=== PATIENT | male | born 1985 | race Caucasian/White ===

== ENCOUNTER 2019-07-17 13:52 | Outpatient (CLI) | payer OTHER ==
--- NOTE | 2019-07-17 16:50 | MRI ---
EXAM: MRI Pelvis WO Con DATE: 07/17/2019 12:00 AM INDICATION: Left sided hip pain for 4 months; concern for left hamstring muscular strain COMPARISON: Left hip radiograph dated May 21, 2019 and AP view of the pelvis dated May 21, 2019 FINDING: There is a 1 cm lobulated T2 hyperintense lesion seen within the right greater trochanter w ith small internal temporal region of diminished signal intensity suspicious suspicious for small calcification. Findings are suspicious for small enchondroma. No acute fracture is evident. There is subcutaneous edema overlying the left mid thigh laterally. No drainable fluid collection is evident. There is mild muscular edema involving the proximal musculotendinous junction of the rectus femoris. There is mild suggested edema involving the left anterior gluteus minimus musculature, best seen on images 12 through 16 of series 4. No definite hamstring muscular strain is evident. No l ymphadenopathy is noted. No iliopsoas or trochanteric bursitis is evident. The visualized abductor musculature appears within normal limits. Visualized intrapelvic contents are normal appearing. IMPRESSION: 1. Mild proximal left rectus femoris muscular strain 2. Mild anterior left gluteus minimus muscular strain. 3. No evidence of left hamstring muscular strain. 4. Nonspecific subcutaneous edema overlying the lateral aspect the left mid thigh may reflect a resol ving contusion.
== END 2019-07-17 13:53 | disposition home or self-care (01) ==
LOC: SCSMRI 13:52
PROVIDERS: ATTEND Orthopaedic Surgery
DX: S76.312A Strain of muscle, fascia and tendon of the posterior muscle group at thigh level, left thigh, initial encounter (principal); S39.013A Strain of muscle, fascia and tendon of pelvis, initial encounter
CPT/HCPCS: 72195

== ENCOUNTER 2019-08-14 10:16 | Outpatient (CLI) | payer OTHER ==
--- NOTE | 2019-08-14 12:37 | MRI ---
MRI LUMBAR SPINE WITHOUT CONTRAST: INDICATION: History of a left hamstring muscular strain and back pain. FINDINGS: There is loss of normal disk signal and height at L4-5 and L5-S1. Conus is seen to terminate approxi mately T12-L1. At L5-S1, there is a left paracentral protrusion superimposed on a broad based disc bulge causing ochoa rowing of the left lateral recess with contact but without definite impingement of the traversing lef t S1 nerve root. There is no appreciable neural foraminal narrowing. At L4-5, there is a broad-based bulge with facet hypertrophy inducing mild neural foraminal narrowing . At L3-4, there is no appreciable central canal or neural foraminal narrowing. At L2-3, there is no appreciable central canal or neural foraminal narrowing. At L1-2, there is no appreciable central canal or neural foraminal narrowing. At T12-L1, there is no appreciable central canal or neural foraminal narrowing. IMPRESSION: 1. Broad-based bulge with a superimposed left paracentral protrusion at L5-S1 inducing moderate narr owing of the left lateral recess with contact of the traversing left S1 nerve root. 2. Mild bilateral neural foraminal narrowing at L4-5. POS: TPC
== END 2019-08-14 10:17 | disposition home or self-care (01) ==
LOC: BICMRI 10:16
PROVIDERS: ATTEND Orthopaedic Surgery
DX: S76.312A Strain of muscle, fascia and tendon of the posterior muscle group at thigh level, left thigh, initial encounter (principal); M48.061 Spinal stenosis, lumbar region without neurogenic claudication; M51.86 Other intervertebral disc disorders, lumbar region
CPT/HCPCS: 72148

== ENCOUNTER 2020-08-25 10:19 | Outpatient (CLI) | payer OTHER ==
--- NOTE | 2020-08-25 11:24 | MRI ---
MR the lumbar spine without contrast: 08/25/2020 History: Back pain, left lower extremity radiculopathy COMPARISON: 08/14/2019 TECHNIQUE: Multiplanar multisequence MR images were obtained of lumbar spine without IV contrast FINDINGS: On the basis of 5 lumbar type vertebral bodies, conus medullaris terminates at [id number] level. Sagittal STIR imaging demonstrates mild edematous degenerative endplate change laterally on the right at L4-5. T12-L1:Unremarkable L1-2:Unremarkable L2-3:Unremarkable L3-4:Mild disc space narrowing with no central canal or neural foraminal stenosis. L4-5:There is disc space narrowing with disc desiccation and mild disc bulge. There is a left paracen tral annular tear. Mild bilateral facet hypertrophy. Vacuum disc formation present. No significant neural foraminal stenosis. No significant central canal stenosis. L5-S1:There is disc space narrowing with disc desiccation and mild disc bulge. There is a left parace ntral disc protrusion with a small associated left paracentral disc protrusion which is less conspicuous than on the prior exam. No significant central canal or neural foraminal stenosis. Small disc protrusion abuts the ventral aspect of the left S1 nerve root. Image retroperitoneal structures demonstrateno acute findings. IMPRESSION: L4-5 and L5-S1 degenerative change as detailed above. Findings include a small left paracentral disc protrusion at L5-S1 abutting the ventral aspect of the left S1 nerve root, less conspicuous than on the prior exam.
== END 2020-08-25 10:20 | disposition home or self-care (01) ==
LOC: TBSIIMAG 10:19
PROVIDERS: ATTEND Surgery
DX: M47.26 Other spondylosis with radiculopathy, lumbar region (principal); M54.30 Sciatica, unspecified side; M47.817 Spondylosis without myelopathy or radiculopathy, lumbosacral region; M51.27 Other intervertebral disc displacement, lumbosacral region
CPT/HCPCS: 72148